=== PATIENT | female | born 1965 | race Caucasian/White ===

== ENCOUNTER 2017-07-31 11:55 | Observation (INO) | payer BC ==
[2017-07-31] MEDS ORDERED: morphine 2 MG INJ IV (13:00)
[2017-07-31] MEDS ORDERED: ACETAMINOPHEN 325 MG TAB PO ×2 (13:00→20:00)
[2017-07-31] MEDS: HYDROCODONE/APAP (5/325) TAB PO ×2 (15:39→21:20)
[2017-07-31] MEDS: SOD CHLORIDE 0.9% 1,000 ML IV (15:40)
[2017-07-31] MEDS ORDERED: NACL 0.9% 3 ML SYG IV (20:00)
[2017-07-31] MEDS ORDERED: BISACODYL (EC) 5 MG TAB PO (20:00)
[2017-07-31] MEDS ORDERED: ZOLPIDEM 5 MG TAB PO (20:00)
[2017-07-31] MEDS ORDERED: DOCUSATE SODIUM 100 MG CAP PO (20:00)
[2017-07-31] MEDS ORDERED: ONDANSETRON 4 MG INJ IV (20:00)
[2017-07-31] MEDS: GABAPENTIN 100 MG CAP PO (20:18)
[2017-07-31] MEDS: CARISOPRODOL 350 MG TAB PO (20:18)
[2017-08-01] MEDS: DEXAMETHASONE 10 MG/ML 1 ML INJ IV ×4 (00:39→18:46)
[2017-08-01] MEDS: HYDROCODONE/APAP (5/325) TAB PO ×2 (05:13→09:01)
[2017-08-01] MEDS: PANTOPRAZOLE 40 MG INJ IV (05:15)
[2017-08-01] MEDS: GABAPENTIN 100 MG CAP PO (09:01)
[2017-08-01] MEDS: CARISOPRODOL 350 MG TAB PO ×2 (09:03→21:37)
[2017-08-01] MEDS: IBUPROFEN 800 MG TAB PO ×2 (15:27→21:37)
[2017-08-01] MEDS: GABAPENTIN 300 MG CAP PO ×2 (15:27→21:37)
[2017-08-02] MEDS: DEXAMETHASONE 10 MG/ML 1 ML INJ IV ×5 (02:09→23:47)
[2017-08-02 05:17] LABS: ADD MAN DIFF? NO
[2017-08-02 05:19] LABS: ABNORMAL IP MESSAGE 1; BASOPHILS % 0.1 % (0.0-2.0); HEMATOCRIT 33.7 % (37.0-47.0); HEMOGLOBIN 11.3 g/dl (12.0-16.0); LYMPHOCYTES # 0.8 10^3/ul (0.8-2.9); LYMPHOCYTES % 3.5 % (15.0-51.0); MEAN CORPUSCULAR HEMOGLOBIN 28.7 pg (29.0-33.0); MEAN CORPUSCULAR HGB CONC 33.5 g/dl (32.0-37.0); MEAN CORPUSCULAR VOLUME 85.5 fl (82.0-101.0); MEAN PLATELET VOLUME 11.8 fl (7.4-10.4); MONOCYTE # 0.3 10^3/ul (0.3-0.9); MONOCYTES % 1.5 % (0.0-11.0); NEUTROPHIL # 20.8 10^3/ul (1.6-7.5); NEUTROPHILS % 93.6 % (39.0-77.0); PLATELET COUNT 370 10^3/UL (140-415); RED BLOOD COUNT 3.94 10^6/ul (4.20-5.40); RED CELL DISTRIBUTION WIDTH 14.8 % (11.5-14.5)
[2017-08-02 05:19] LABS: WHITE BLOOD COUNT 22.3 10^3/ul (4.8-10.8)
[2017-08-02 05:43] LABS: POSITIVE DIFF @See below
[2017-08-02 05:48] LABS: ALANINE AMINOTRANSFERASE 34 IU/L (13-69); ALBUMIN 4.3 g/dl (3.3-4.9); ALKALINE PHOSPHATASE 79 IU/L (42-121); ANION GAP 18 (8-16); ASPARTATE AMINO TRANSFERASE 17 IU/L (15-46); BILIRUBIN,INDIRECT 0.2 mg/dl (0-1.1); BILIRUBIN,TOTAL 0.2 mg/dl (0.2-1.3); BLOOD UREA NITROGEN 17 mg/dl (7-20); CALCIUM 9.3 mg/dl (8.4-10.2); CARBON DIOXIDE 24 mmol/L (21-31); CHLORIDE 102 mmol/L (97-110); CREATININE 0.58 mg/dl (0.44-1.00); GLUCOSE 131 mg/dl (70-220); POTASSIUM 4.3 mmol/L (3.5-5.1); SODIUM 140 mmol/L (135-144); TOTAL PROTEIN 7.6 g/dl (6.1-8.1)
[2017-08-02] MEDS: PANTOPRAZOLE 40 MG INJ IV (06:00)
[2017-08-02] MEDS: GABAPENTIN 300 MG CAP PO ×3 (09:04→20:14)
[2017-08-02] MEDS: CARISOPRODOL 350 MG TAB PO ×2 (09:04→20:14)
[2017-08-02] MEDS: IBUPROFEN 800 MG TAB PO ×3 (09:04→20:14)
[2017-08-02] MEDS: INFLUENZA VIRUS VACCINE 0.5 ML SYG IM* (12:29)
[2017-08-02] MEDS: HYDROCODONE/APAP (5/325) TAB PO (18:09)
[2017-08-03] MEDS: PANTOPRAZOLE 40 MG INJ IV (05:05)
[2017-08-03] MEDS: DEXAMETHASONE 10 MG/ML 1 ML INJ IV ×3 (05:05→19:05)
[2017-08-03] MEDS: CARISOPRODOL 350 MG TAB PO ×2 (09:21→19:56)
[2017-08-03] MEDS: IBUPROFEN 800 MG TAB PO ×3 (09:21→19:56)
[2017-08-03] MEDS: GABAPENTIN 300 MG CAP PO ×3 (09:21→19:56)
[2017-08-03] MEDS: HYDROCODONE/APAP (5/325) TAB PO (11:15)
== END 2017-08-03 21:00 | disposition home or self-care (01) ==
LOC: MS1 11:55
DX: M47.26 Other spondylosis with radiculopathy, lumbar region (principal); D64.9 Anemia, unspecified; Z23 Encounter for immunization
CPT/HCPCS: 80053; 85025; 90686; 97163; 99217

== ENCOUNTER 2017-12-27 08:57 | Day surgery (SDC) | payer BC ==
[2017-12-27] MEDS: CEFAZOLIN 1 GM/50 ML (PMX) 50 ML IVPB (06:00)
[~2017-12-27 08:57] MED LIST: METOCLOPRAMIDE 10 MG INJ; ONDANSETRON 4 MG INJ
[2017-12-27] MEDS ORDERED: FENTAnyl 50 MCG/ML VIAL (10:36)
[2017-12-27] MEDS ORDERED: DEXAMETHASONE 4 MG/ML 1 ML INJ (10:37)
[2017-12-27] MEDS ORDERED: PROPOFOL 20 ML (10:37)
[2017-12-27] MEDS ORDERED: MIDAZOLAM 1 MG/ML 2 ML INJ (10:37)
[2017-12-27] MEDS ORDERED: LIDOCAINE 2% (SDV) 5 ML INJ (10:37)
[2017-12-27] MEDS ORDERED: CEFAZOLIN 1 GM INJ (10:38)
[2017-12-27] MEDS: morphine SULFATE/PF (10 MG/10 ML) INJ (12:30)
[2017-12-27] MEDS ORDERED: KETOROLAC 30 MG INJ IV (13:00)
[2017-12-27] MEDS ORDERED: hydrALAzine 20 MG INJ IV (13:00)
[2017-12-27] MEDS ORDERED: MEPERIDINE 25 MG INJ IV (13:00)
[2017-12-27] MEDS ORDERED: HYDROCODONE/APAP (5/325) TAB PO ×2 (13:00)
[2017-12-27] MEDS ORDERED: LABETALOL HCL 20MG INJ IV (13:00)
[2017-12-27] MEDS ORDERED: DIPHENHYDRAMINE 50 MG INJ IV (13:00)
[2017-12-27] MEDS ORDERED: FENTAnyl 50 MCG/ML VIAL IV ×2 (13:00)
[2017-12-27] MEDS ORDERED: HYDROmorphONE 1 MG/5 ML IV SYRINGE IV ×2 (13:00)
== END 2017-12-27 16:00 | disposition home or self-care (01) ==
LOC: SDS 08:57
DX: M23.251 Derangement of posterior horn of lateral meniscus due to old tear or injury, right knee (principal); M94.261 Chondromalacia, right knee
CPT/HCPCS: 29881